=== PATIENT | female | born 1980 | race Caucasian/White ===

== ENCOUNTER 2025-05-17 22:49 | Emergency (ER) | payer OTHER ==
[~2025-05-17] VITALS: Ht 154.9 cm; Wt 62.1 kg
[2025-05-17 23:08] VITALS: BP 121/82
[2025-05-18 00:11] LABS: PLATELET COUNT (AUTO) 145 K/uL (179-408); RED BLOOD CELL COUNT(AUTO) 4.74 MIL/uL (3.63-4.92); RED CELL DISTRIBUTION WIDTH 15.9 % (12.3-17.7); WHITE BLOOD COUNT (AUTO) 3.3 K/uL (3.8-11.8)
[2025-05-18 00:17] LABS: CREATININE 0.5 mg/dL (0.6-1.3); SODIUM SERUM 138 mmol/L (136-145); UREA NITROGEN, BLOOD 13 mg/dL (7-18)
[2025-05-18 00:22] LABS: ASPARTATE AMINOTRANSFERASE 86 U/L (15-37); TOTAL PROTEIN, SERUM 7.8 g/dL (6.4-8.2)
[2025-05-18] MEDS ORDERED: INSULIN REGULAR, HUMAN 1000 UNIT/10 ML VIAL ONE (00:30)
[2025-05-18] MEDS ORDERED: POTASSIUM CHLORIDE 20 MEQ TAB.PRT.SR ONE (00:30)
[2025-05-18 00:31] LABS: ACETONE, SERUM SMALL (NEGATIVE)
[2025-05-18] MEDS: INSULIN REGULAR, HUMAN 1000 UNIT/10 ML VIAL IV ONE (00:48)
[2025-05-18] MEDS: POTASSIUM CHLORIDE 20 MEQ TAB.PRT.SR PO ONE (00:48)
[2025-05-18] MEDS ORDERED: MICO200S3 VG (01:06)
[2025-05-18] MEDS ORDERED: HYDROCODONE/APAP 5-325MG TABLET ONE (01:11)
[2025-05-18] MEDS: HYDROCODONE/APAP 5-325MG TABLET PO ONE (01:12)
[2025-05-18] MEDS ORDERED: DIPH25TA25 PO (01:26)
[2025-05-18] MEDS ORDERED: HYDR-4209 PO (01:26)
[2025-05-18 02:27] VITALS: BP 120/80; TEMP 97.8; O2SAT 99
== END 2025-05-18 02:28 | disposition home or self-care (01) ==
LOC: ER 22:49
DX: E11.65 Type 2 diabetes mellitus with hyperglycemia (principal); L29.89 Other pruritus; Z79.84 Long term (current) use of oral hypoglycemic drugs
CPT/HCPCS: 99284; 82962 ×2; 36415; 96374; 80053; 82009; 83690; 85025; 87210; Q0163; J1815; A4606; A4663